=== PATIENT | female | born 1950 | race Caucasian/White ===

== ENCOUNTER → 2017-11-21 | Outpatient (CLI) | payer MEDICARE, OTHER ==
[~2017-11-21] MED LIST: ALBU90OI6 INH; AMLO5 PO; CHOL10002; FAMO20 PO; HYDCHL25 PO; LAVAP17G PO; LOSARTAN POTAS100 MG PO; MONT10T PO; Omeprazole20 M1; PARO20 PO; PREG75 PO; STELARA45 MG/0.5 SQ; Senna8.6 MG PO; Super B-50 Com1 EAC1 PO; TRAZ100 PO; Unithroid100 MCG PO; Vitamin C1000 M1 PO; ZYRTEC10 M2 PO
== END ==
LOC: LAB 18:45
DX: N39.0 Urinary tract infection, site not specified (principal)
CPT/HCPCS: 87086

== ENCOUNTER → 2019-02-03 | Outpatient (CLI) | payer MEDICARE, OTHER ==
[2019-02-05 15:06] LABS: HPV 16 Negative (Negative); HPV 18 Negative (Negative); HPV OTHER HR TYPES Negative (Negative)
== END | disposition home or self-care (01) ==
LOC: LAB SHORT 18:21 → LAB 18:21
PROVIDERS: Nurse Practitioner Women's Health
DX: Z12.72 Encounter for screening for malignant neoplasm of vagina (principal)
CPT/HCPCS: 87624; G0123

== ENCOUNTER → 2019-03-18 | Outpatient (CLI) | payer MEDICARE, OTHER ==
[2019-03-18 18:16] LABS: Source, Urine Catheter
[2019-03-18 18:28] LABS: Bilirubin, Urine Neg (Neg); Blood, Urine Neg (Neg); Glucose Qualitative, Urine Neg (Neg); Ketones, Urine Neg (Neg); Leukocyte Esterase, Urine Neg (Neg); Nitrite, Urine Neg (Neg); Protein, Urine Neg (Neg); Specific Gravity, Urine 1.005 (1.003-1.022); Urobilinogen, Urine NORM (Normal)
[2019-03-18 18:35] LABS: Appearance, Urine Clear (Clear); Color, Urine Yellow (P-Yellow)
== END | disposition home or self-care (01) ==
LOC: LAB 18:15 → LAB SHORT 18:15
PROVIDERS: Obstetrics & Gynecology Gynecology
DX: N39.41 Urge incontinence (principal)
CPT/HCPCS: 81003

== ENCOUNTER → 2019-03-18 | Outpatient (CLI) | payer MEDICARE, OTHER | END | disposition home or self-care (01) | LOC: PLD 07:10 → LAB SHORT 07:10 | DX: N39.41 Urge incontinence (principal) | CPT/HCPCS: 88108 ==

== ENCOUNTER → 2021-06-02 | Outpatient (CLI) | payer MEDICARE ==
[2021-06-02 13:55] LABS: Source, Urine Clean Catch
[2021-06-02 15:10] LABS: Appearance, Urine Clear (Clear); Bilirubin, Urine Neg (Neg); Blood, Urine Neg (Neg); Color, Urine Yellow (P-Yellow); Glucose Qualitative, Urine Neg (Neg); Ketones, Urine Neg (Neg); Leukocyte Esterase, Urine Neg (Neg); Nitrite, Urine Neg (Neg); Protein, Urine Neg (Neg); Specific Gravity, Urine 1.015 (1.003-1.022); Urobilinogen, Urine NORM (Normal); pH, Urine 6.5 (5.0-8.0)
== END | disposition home or self-care (01) ==
LOC: LAB 13:54 → LAB SHORT 13:54
PROVIDERS: Internal Medicine
DX: N39.0 Urinary tract infection, site not specified (principal)
CPT/HCPCS: 81003

== ENCOUNTER 2023-03-27 08:42 | Day surgery (SDC) | payer MEDICARE ==
[~2023-03-27] VITALS: Ht 154.9 cm; Wt 78.9 kg
[2023-03-27] MEDS ORDERED: POTA8 (09:08)
[2023-03-27] MEDS ORDERED: ESCI10 (09:12)
[2023-03-27] MEDS ORDERED: LORA.5 (09:13)
[2023-03-27] MEDS ORDERED: TIZA4 (09:13)
[2023-03-27] MEDS ORDERED: Bentyl10 MG (09:13)
[2023-03-27] MEDS ORDERED: LOSA50 (09:13)
[2023-03-27] MEDS ORDERED: DOCU100 (09:14)
[2023-03-27] MEDS ORDERED: CETI5 (09:15)
[2023-03-27 10:41] VITALS: BP 90/63
== END 2023-03-27 10:57 | disposition home or self-care (01) ==
LOC: ORSCSDS 08:42
PROVIDERS: Student in an Organized Health Care Education/Training Program
PROC: 0DB78ZX Excision of Stomach, Pylorus, Via Natural or Artificial Opening Endoscopic, Diagnostic (ICD-10-PCS; principal; 2023-03-27 10:15)
PROC: 0DBL8ZX Excision of Transverse Colon, Via Natural or Artificial Opening Endoscopic, Diagnostic (ICD-10-PCS; principal; 2023-03-27 10:15)
PROC: 0DBK8ZX Excision of Ascending Colon, Via Natural or Artificial Opening Endoscopic, Diagnostic (ICD-10-PCS; principal; 2023-03-27 10:15)
PROC: 0DBN8ZX Excision of Sigmoid Colon, Via Natural or Artificial Opening Endoscopic, Diagnostic (ICD-10-PCS; principal; 2023-03-27 10:15)
PROC: 0DB98ZX Excision of Duodenum, Via Natural or Artificial Opening Endoscopic, Diagnostic (ICD-10-PCS; principal; 2023-03-27 10:15)
PROC: 0DB58ZX Excision of Esophagus, Via Natural or Artificial Opening Endoscopic, Diagnostic (ICD-10-PCS; principal; 2023-03-27 10:15)
DX: Z12.11 Encounter for screening for malignant neoplasm of colon (principal); Z86.010 Personal history of colon polyps; K21.00 Gastro-esophageal reflux disease with esophagitis, without bleeding; R10.13 Epigastric pain; K29.70 Gastritis, unspecified, without bleeding; K31.7 Polyp of stomach and duodenum; D12.5 Benign neoplasm of sigmoid colon; D12.2 Benign neoplasm of ascending colon; D12.3 Benign neoplasm of transverse colon; I10 Essential (primary) hypertension; J44.9 Chronic obstructive pulmonary disease, unspecified; E03.9 Hypothyroidism, unspecified; Z79.899 Other long term (current) drug therapy; K57.30 Diverticulosis of large intestine without perforation or abscess without bleeding; K64.8 Other hemorrhoids
CPT/HCPCS: 88305; 88312; 88342; J2704; J7120

== ENCOUNTER 2023-10-25 12:39 | Inpatient (IN) | payer MEDICARE ==
[~2023-10-25] VITALS: Ht 160 cm; Wt 81.5 kg
[~2023-10-25 12:39] MED LIST changes: +Bentyl10 MG; +CETI5; +DOCU100; +ESCI10; +LORA.5; +LOSA50; +POTA8 PO; +TIZA4 PO
[2023-10-25 13:25] LABS: BASOPHILS ABSOLUTE AUTO 0.04 K/mm3 (0.00-0.23); BASOPHILS PERCENT AUTO 1 % (0-2); EOSINOPHILS ABSOLUTE AUTO 0.18 K/mm3 (0.00-0.68); EOSINOPHILS PERCENT AUTO 3 % (0-6); Hematocrit 38.6 % (33.0-51.0); IMMATURE GRAN ABSOLUTE AUTO 0.08 K/mm3 (0.00-0.10); IMMATURE GRAN PERCENT AUTO 1 % (0-1); LYMPHOCYTES ABSOLUTE AUTO 2.14 K/mm3 (0.84-5.20); LYMPHOCYTES PERCENT AUTO 29 % (21-46); MONOCYTES ABSOLUTE AUTO 0.52 K/mm3 (0.16-1.47); MONOCYTES PERCENT AUTO 7 % (4-13); Mean Corpuscular HGB 28.4 pg (26.0-34.0); Mean Corpuscular HGB Conc 33.7 g/dL (31.5-36.5); Mean Corpuscular Volume 85 fL (80-100); NEUTROPHILS ABSOLUTE AUTO 4.35 K/mm3 (1.96-9.15); NEUTROPHILS PERCENT AUTO 60 % (41-73); NRBC ABSOLUTE 0.02 K/mm3 (0.00-0.02); NRBC Auto 0.3 /100 WBC (0.0-0.2); RDW Coefficient Variation 13.6 % (11.7-14.2); RDW Standard Deviation 42.1 fL (35.1-46.3); Red Blood Cell Count 4.57 M/mm3 (3.80-5.20); White Blood Cell Count 7.31 K/mm3 (4.00-11.30)
[2023-10-25] MEDS ORDERED: HYDROCODONE-AC1 EA19 PO (13:25)
[2023-10-25] MEDS ORDERED: OMEP20ER PO (13:25)
[2023-10-25] MEDS ORDERED: MONT10T PO (13:26)
[2023-10-25] MEDS ORDERED: EUTHYROX88 MC1 PO (13:26)
[2023-10-25 13:30] LABS: Albumin, Blood 3.3 g/dL (3.4-5.0); Bilirubin, Total 0.5 mg/dL (0.1-1.0); Calcium, Blood 8.8 mg/dL (8.5-10.1); Creatinine, Blood 0.62 mg/dL (0.40-1.00); Globulin, Blood 3.4 g/dL (2.2-4.0); Potassium, Blood 3.8 mmol/L (3.5-5.5); Total Protein, Blood 6.7 g/dL (6.4-8.2)
[2023-10-25 13:53] LABS: Mean Platelet Volume 11.5 fL (9.1-12.4); Platelet Count 150 K/mm3 (150-400)
[2023-10-25 16:30] VITALS: BP 130/67
[2023-10-25] MEDS ORDERED: LORA1 PO (16:59)
[2023-10-25] MEDS ORDERED: HYDCHL25 PO (17:01)
--- NOTE | 2023-10-25 17:18 | NUR ---
SHIFT SUMMARY/PATIENT ARRIVAL NOTE: PATIENT ARRIVED FROM ER TODAY. PATIENT IS A&OX4. PATIENT IS ON 2L NC WITH >90% OXYGEN SATS. OTHERWISE PATIENTS VS ARE WNL. PATIENT REPORTS A 8/10 BUT HAS BEEN GIVEN IV FENTANYL AND PO NORCO AT THIS TIME. RIGHT HIP IS EXTERNALLY ROTATED BUT PATIENT DENIES NUMBNESS OR TINGLING IN ALL EXTREMITIES. SHE IS ABLE TO MOVE ALL FINGERS AND TOES WHEN ASKED. SHE IS TOLERATING SMALL AMOUNTS OF PO INTAKE AT THIS TIME. PURWICK IS IN PLACE AND ON LOW INTERMITTENT SUCTION. PATIENT IS CURRENTLY LAYING IN BED WITH CALL LIGHT IN REACH. THE PLAN IS TO BE NPO AT MIDNIGHT TONIGHT FOR SURGERY TOMORROW.
[2023-10-25 20:17] VITALS: BP 145/82
[2023-10-26] VITALS (14 sets, daily range): BP systolic 94–144; BP diastolic 63–95
--- NOTE | 2023-10-26 05:04 | NUR ---
SHIFT SUMMARY S/P R HIP FX. NO ACUTE CHANGES OVERNIGHT. VS WNL FOR PT. NPO SINCE MIDNIGHT R/T ANTICIPATED SURGERY LATER TODAY. PT ON BASELINE GLUTEN FREE DIET. PT ON BEDREST OVERNIGHT. PUREWICK/ATTENS IN PLACE, NO BM OVERNIGHT. PT REPORTS PAIN NOT ADEQUATELY COVERED, ABLE TO SLEEP MINIMALLY OVERNIGHT, MEDICATED PER EMAR. CALL LIGHT WITHIN REACH, BED IN LOWEST POSITION, WILL REPORT TO DAY RN.
--- NOTE | 2023-10-26 11:33 | NUR ---
PATIENT JUST LEFT FOR THE OR.
--- NOTE | 2023-10-26 11:42 | NUR ---
ASSUMED CARE, PT IN PACU FOR PRE-OP
--- NOTE | 2023-10-26 12:34 | NUR ---
DR CODY, DR VELASCO, AND DR DUVALL HAVE SEEN THE PATIENT AND ANSWERED HER QUESTIONS.
--- NOTE | 2023-10-26 15:04 | NUR ---
SHIFT SUMMARY: POD 0 RIGHT HIP NAILING PATIENT IS A&OX4. PATIENT IS CURRENTLY ON 4L NC OF OXYGEN WITH >90% OXYGEN SATS. PATIENT REPORTS A 4/10 PAIN AT THIS TIME AND IS REFUSING PAIN MEDICATIONS AT THIS TIME WELL. SHE HAS X2 AQUACELS ON THE RIGHT HIP THAT ARE C/D/I. SHE IS ABLE TO MOVE ALL FINGERS AND TOES WHEN ASKED.DENIES NUMBNESS OR TINGLING IN ALL EXTREMITIES. PATIENT IS TOLERATING SMALL AMOUNTS OF PO INTAKE AT THIS TIME. SHE IS CURRENTLY LAYING IN BED WITH CALL LIGHT IN REACH AND FAMILY AT BEDSIDE.
[2023-10-27 00:34] VITALS: BP 121/76
[2023-10-27 05:09] VITALS: BP 116/75
[2023-10-27 05:24] LABS: BASOPHILS ABSOLUTE AUTO 0.01 K/mm3 (0.00-0.23); BASOPHILS PERCENT AUTO 0 % (0-2); EOSINOPHILS ABSOLUTE AUTO 0.01 K/mm3 (0.00-0.68); EOSINOPHILS PERCENT AUTO 0 % (0-6); Hematocrit 33.7 % (33.0-51.0); Hemoglobin 11.3 g/dL (11.5-16.0); IMMATURE GRAN ABSOLUTE AUTO 0.05 K/mm3 (0.00-0.10); IMMATURE GRAN PERCENT AUTO 0 % (0-1); LYMPHOCYTES ABSOLUTE AUTO 0.83 K/mm3 (0.84-5.20); LYMPHOCYTES PERCENT AUTO 7 % (21-46); MONOCYTES ABSOLUTE AUTO 0.86 K/mm3 (0.16-1.47); MONOCYTES PERCENT AUTO 8 % (4-13); Mean Corpuscular HGB 28.8 pg (26.0-34.0); Mean Corpuscular HGB Conc 33.5 g/dL (31.5-36.5); Mean Corpuscular Volume 86 fL (80-100); Mean Platelet Volume 11.1 fL (9.1-12.4); NEUTROPHILS ABSOLUTE AUTO 9.67 K/mm3 (1.96-9.15); NEUTROPHILS PERCENT AUTO 85 % (41-73); Platelet Count 131 K/mm3 (150-400); RDW Coefficient Variation 13.4 % (11.7-14.2); RDW Standard Deviation 42.1 fL (35.1-46.3); Red Blood Cell Count 3.92 M/mm3 (3.80-5.20); White Blood Cell Count 11.43 K/mm3 (4.00-11.30)
[2023-10-27 05:39] LABS: Bun/Creatinine Ratio 22.2 (12.0-20.0); Calcium, Blood 8.5 mg/dL (8.5-10.1); Creatinine, Blood 0.63 mg/dL (0.40-1.00); Potassium, Blood 4.2 mmol/L (3.5-5.5)
--- NOTE | 2023-10-27 05:43 | NUR ---
SHIFT SUMMARY PT POD 0 RIGHT HIP NAILING. PT HAS RESTED T/O THE NIGHT, NO COMPLAINTS OF PAIN. DENIES N/T IN EXTREMITITES, ABLE TO WIGGLE TOES. PT VOIDING AND TOLERATING PO INTAKE. DRESSING C/D/I INTACT TO RIGHT HIP. BED IN LOWEST POSITION, CALL LIGHT WITHIN REACH.
[2023-10-27 06:00] LABS: Source, Urine Clean Catch
[2023-10-27 06:18] LABS: Bilirubin, Urine Neg (Neg); Blood, Urine Neg (Neg); Glucose Qualitative, Urine Neg (Neg); Ketones, Urine Neg (Neg); Leukocyte Esterase, Urine Neg (Neg); Nitrite, Urine Neg (Neg); Protein, Urine 1+ (Neg); Specific Gravity, Urine 1.015 (1.003-1.022); Urobilinogen, Urine NORM (Normal)
[2023-10-27 06:58] LABS: Appearance, Urine Clear (Clear); Color, Urine Yellow (P-Yellow)
[2023-10-27 08:06] VITALS: BP 114/64
[2023-10-27 15:29] VITALS: BP 110/62
--- NOTE | 2023-10-27 18:14 | NUR ---
SHIFT SUMMARY PT POD #1 FOR R HIP NAILING FOLLOWING A GLF AT HOME. PT WORKED WITH PHYSICAL THERAPY AND IS A 1-2 ASSIST W/FWW/GAITBELT TO THE BATHROOM. AQUACEL TO R HIP CDI. WOUND GLUE TO LACERATION ON SCALP. PT HAS NOT HAD A BM BUT IS PASSING GAS. BOWEL CARE ORDERED. VSS.
[2023-10-27 19:27] VITALS: BP 118/65
--- NOTE | 2023-10-28 03:42 | NUR ---
SHIFT SUMMARY POD #2 R.HIP NAILING A&O X4, ON RA, VSS, ROB DRSSuraj'S C/D/I, TRISH FOR PAIN, SBA TO BSC/BATHROOM, RESTING QUIETLY THIS AM, RESP UNLABORED WCTM AND REORT TO DAYSHIFT RN
[2023-10-28 05:22] VITALS: BP 111/67
[2023-10-28 05:48] LABS: BASOPHILS ABSOLUTE AUTO 0.03 K/mm3 (0.00-0.23); BASOPHILS PERCENT AUTO 0 % (0-2); EOSINOPHILS ABSOLUTE AUTO 0.22 K/mm3 (0.00-0.68); EOSINOPHILS PERCENT AUTO 2 % (0-6); Hematocrit 30.9 % (33.0-51.0); Hemoglobin 10.2 g/dL (11.5-16.0); IMMATURE GRAN ABSOLUTE AUTO 0.04 K/mm3 (0.00-0.10); IMMATURE GRAN PERCENT AUTO 0 % (0-1); LYMPHOCYTES ABSOLUTE AUTO 2.19 K/mm3 (0.84-5.20); LYMPHOCYTES PERCENT AUTO 23 % (21-46); MONOCYTES ABSOLUTE AUTO 0.84 K/mm3 (0.16-1.47); MONOCYTES PERCENT AUTO 9 % (4-13); Mean Corpuscular HGB 28.8 pg (26.0-34.0); Mean Corpuscular Volume 87 fL (80-100); Mean Platelet Volume 11.6 fL (9.1-12.4); NEUTROPHILS ABSOLUTE AUTO 6.34 K/mm3 (1.96-9.15); NEUTROPHILS PERCENT AUTO 66 % (41-73); Platelet Count 123 K/mm3 (150-400); RDW Coefficient Variation 13.9 % (11.7-14.2); Red Blood Cell Count 3.54 M/mm3 (3.80-5.20); White Blood Cell Count 9.66 K/mm3 (4.00-11.30)
[2023-10-28 06:36] LABS: Anion Gap Unable to Calculate mmol/L (6-16); Blood Urea Nitrogen 13 mg/dL (8-24); Bun/Creatinine Ratio 20.2 (12.0-20.0); CO2, Blood 32 mmol/L (21-32); Calcium, Blood 8.6 mg/dL (8.5-10.1); Chloride, Blood 108 mmol/L (98-108); Creatinine, Blood 0.64 mg/dL (0.40-1.00); Glomerular Filtration Rate 93 (60-); Glucose, Blood 105 mg/dL (70-99); Potassium, Blood 3.8 mmol/L (3.5-5.5); Sodium, Blood 139 mmol/L (136-145)
[2023-10-28 07:58] VITALS: BP 108/65
[2023-10-28] MEDS ORDERED: DOCU100 PO (11:52)
[2023-10-28] MEDS ORDERED: ENOX40I SC (11:52)
[2023-10-28] MEDS ORDERED: MIRALAX17 GM PO (11:53)
--- NOTE | 2023-10-28 13:43 | NUR ---
DISCHARGE SUMMARY POD 2 R HIP NAILING, A/OX4, VSS, TOLERATING PO, PAIN WELL MANAGED, VOIDING WELL, AQUACELL TO R HIP C/D/I X2. DISCUSSED DISCHARGE INFORMATION WITH HER INCLUDING HOME CARE, MEDICATIONS AND FOLLOW UP APPOINTMENTS. NO QUESTIONS AT THIS TIME, PT ESCORTED OUT VIA WC TO PRIVATE AUTO TO GO HOME.
== END 2023-10-28 12:57 | disposition home health service (06) | DRG 482 ==
LOC: ER 12:39 → SURS 12:40
PROVIDERS: Emergency Medicine; Family Medicine; Nurse Practitioner Acute Care; ADMIT Surgery
PROC: 0HQ0XZZ Repair Scalp Skin, External Approach (ICD-10-PCS; principal; 2023-10-25)
PROC: 0QS606Z Reposition Right Upper Femur with Intramedullary Internal Fixation Device, Open Approach (ICD-10-PCS; 2023-10-26)
DX: S72.141A Displaced intertrochanteric fracture of right femur, initial encounter for closed fracture (principal); W18.30XA Fall on same level, unspecified, initial encounter; M79.7 Fibromyalgia; F41.9 Anxiety disorder, unspecified; I10 Essential (primary) hypertension; E03.9 Hypothyroidism, unspecified; K21.9 Gastro-esophageal reflux disease without esophagitis; D64.9 Anemia, unspecified; D69.6 Thrombocytopenia, unspecified; S01.01XA Laceration without foreign body of scalp, initial encounter; D72.829 Elevated white blood cell count, unspecified; I25.10 Atherosclerotic heart disease of native coronary artery without angina pectoris; J45.909 Unspecified asthma, uncomplicated; G89.29 Other chronic pain; E66.9 Obesity, unspecified; Z88.5 Allergy status to narcotic agent; Z88.8 Allergy status to other drugs, medicaments and biological substances; Z91.040 Latex allergy status; Z91.048 Other nonmedicinal substance allergy status; Z79.899 Other long term (current) drug therapy; Z79.890 Hormone replacement therapy; Z90.49 Acquired absence of other specified parts of digestive tract; Z90.710 Acquired absence of both cervix and uterus; Z98.890 Other specified postprocedural states; Z96.642 Presence of left artificial hip joint; Z68.30 Body mass index [BMI] 30.0-30.9, adult; Z68.38 Body mass index [BMI] 38.0-38.9, adult
CPT/HCPCS: 12001; 36415; 70450; 72125; 73502; 73552; 80048; 80053; 85025; 93005; 93010; 94760; 96374-59; 96375-59; 96376; 96376-59; 97110; 97116; 97161; 97165; 97530; 97535; 99285-25; A9270; G0378; J0690; J1170; J1650; J2371; J2704; J3010; J7120; L0160

== ENCOUNTER → 2024-09-02 | Outpatient (CLI) | payer MEDICARE ==
[~2024-09-02] MED LIST changes: +DOCU100 PO; +ENOX40I SC; +EUTHYROX88 MC1 PO; +HYDROCODONE-AC1 EA19 PO; +LORA1 PO; +MIRALAX17 GM PO; +OMEP20ER PO
[2024-09-05 07:40] LABS: BARTONELLA HENSELAE AB IGG <1:64; BARTONELLA HENSELAE AB IGM < 1:16; BARTONELLA QUINTANA AB, IGG <1:64; BARTONELLA QUINTANA AB, IGM < 1:16
== END | disposition home or self-care (01) ==
LOC: LAB SHORT 15:27 → LAB 15:27
PROVIDERS: Chiropractor
DX: T14.8XXA Other injury of unspecified body region, initial encounter (principal); W55.03XA Scratched by cat, initial encounter
CPT/HCPCS: 86611

== ENCOUNTER → 2024-09-29 | Outpatient (CLI) | payer MEDICARE | LOC: LAB SHORT 17:28 → LAB 17:28 | DX: R30.0 Dysuria (principal) | CPT/HCPCS: 87086 ==

== ENCOUNTER 2025-01-22 10:35 | Day surgery (SDC) | payer MEDICARE ==
[~2025-01-22] VITALS: Ht 154.9 cm; Wt 82.6 kg
[~2025-01-22 10:35] MED LIST changes: +Lactated Ringer's 1,000 ML IV ONE
[2025-01-22] MEDS ORDERED: Ativan1 MG PO (11:14)
[2025-01-22] MEDS ORDERED: METOPROLOL TART5010 PO (11:18)
[2025-01-22] MEDS ORDERED: ESCI10 PO (11:18)
[2025-01-22] MEDS ORDERED: Bentyl10 MG PO (11:19)
[2025-01-22] MEDS ORDERED: TIZANIDINE HCL213 PO (11:19)
[2025-01-22] MEDS ORDERED: Lactated Ringer's 1,000 ML IV ONE (11:51)
[2025-01-22] MEDS ORDERED: propofoL 50 ML IV ONE (12:06)
[2025-01-22 12:51] VITALS: BP 117/62
== END 2025-01-22 12:53 | disposition home or self-care (01) ==
LOC: ORSCSDS 10:35
PROVIDERS: Internal Medicine Gastroenterology
PROC: 0DJ08ZZ Inspection of Upper Intestinal Tract, Via Natural or Artificial Opening Endoscopic (ICD-10-PCS; principal; 2025-01-22 12:00)
DX: R13.10 Dysphagia, unspecified (principal); R10.9 Unspecified abdominal pain; R14.0 Abdominal distension (gaseous); I10 Essential (primary) hypertension; Z79.899 Other long term (current) drug therapy
CPT/HCPCS: J2704; J7120